=== PATIENT | female | born 1975 | race Caucasian/White ===

== ENCOUNTER → 2025-01-20 | Outpatient (CLI) | payer MEDICAID, SELFPAY ==
[2025-01-20 17:38] LABS: Hematocrit 43.7 % (37-47); Hemoglobin 14.2 g/dL (12.0-15.0); Immature Granulocytes Count 0.020 X10^3/uL (0.0-0.0); Mean Corp Hgb Conc 32.5 g/dL (32-36); Mean Corpuscular Volume 95.8 fL (81-99); Mean Platelet Vol. 9.8 fl (6.2-12.0); NRBC Flagged by Analyzer 0 % (0-5); Platelet Count 258 K/mm3 (150-450); RBC Distribution Width CV 13.2 % (11.6-14.6); RBC Distribution Width SD 47.5 fl (35.1-43.9); Red Blood Count 4.56 M/mm3 (4.2-5.4); White Blood Count 7.9 K/mm3 (4.4-11.0)
[2025-01-20 18:04] LABS: AST(SGOT) 19 U/L (<=31); Alanine Aminotransfer ALT/SGPT 14 U/L (<=34); Albumin, Serum 4.0 g/dL (3.5-5.0); Alkaline Phosphatase 88 U/L (35-104); Anion Gap 9 (5-15); BUN 9 mg/dL (4-19); BUN/Creat Ratio 12.0 RATIO (10-20); Calcium,Total 9.5 mg/dL (7.6-11.0); Carbon Dioxide 25.4 mmol/L (21.0-32.0); Chloride 103 mmol/L (98-108); Cholesterol 208 mg/dL (<=200); Globulin 3.0 g/dL (2.2-4.2); Glucose 86 mg/dL (70-99); Low Density Lipoprotein Calc. 150 mg/dL; Potassium 4.7 mmol/L (3.3-5.1); Triglycerides 89 mg/dL; Very Low Density Lipoprotein 18 mg/dL (5-40); cholesterol:hdl ratio screen 4.96
== END | disposition home or self-care (01) ==
LOC: BFHLAB 15:58
PROVIDERS: PCP Family Medicine; Visit Provider Family Medicine
DX: Z00.00 Encounter for general adult medical examination without abnormal findings (principal)
CPT/HCPCS: 36415; 80053; 80061; 84443; 85025